=== PATIENT | female | born 1995 | race Caucasian/White ===

== ENCOUNTER 2016-11-04 19:27 | Emergency (ER) | payer OTHER ==
[2016-11-04 19:47] VITALS: BP 118/64; PULSE 83; TEMP 98.4; BMI 28.3
--- NOTE | 2016-11-04 21:01 | PDOC ---
History of Present Illness <Yecenia Izaguirre - Last Filed: 11/05/16 00:06> - General History Source: Patient Exam Limitations: No Limitations - History of Present Illness Initial Comments: 11/04/16 21:18 The patient is a 21 year old female 7 weeks A2, with no significant past medical history, who presents to the emergency room with mild suprapubic cramping and vaginal spotting. She explains that she saw some blood on the toilet paper this evening and has been experiencing some mild cramping. She notes that she visited another ED on 10/27/16 for vomiting and nausea when she was told she had an intrauterine of 6 weeks 2 days. She also notes that she had a UTI, but could not take any of the antibiotics because she was vomiting everything she ingested. At this moment she is not experiencing any vomiting, but wanted to be checked out because of the spotting. Her LMP was 09/13/16. She seen OBGYN Dr. Liz? 3 weeks ago. Denies nausea, vomiting, fever, chills. Denies urinary symptoms. Allergies: none reported Social hx: Occasional tobacco use. Social alcohol use. <Karla Landa - Last Filed: 11/05/16 00:07> - General Chief Complaint: Nausea/Vomiting Stated Complaint: VAGINAL BLEEDING/7 WKS Time Seen by Provider: 11/04/16 20:19 Past History - Past Medical History Other medical history: Pt denies - Immunization History Immunization Up to Date: Yes - Psycho/Social/Smoking Cessation Hx Anxiety: No Suicidal Ideation: No Smoking Status: No Smoking History: Former smoker Have you smoked in the past 12 months: Yes Number of Cigarettes Smoked Daily: 2 If you are a former smoker, when did you quit?: 3 wks ago Information on smoking cessation initiated: No Hx Alcohol Use: No Drug/Substance Use Hx: No Substance Use Type: None <Yecenia Izaguirre - Last Filed: 11/05/16 00:06> <Karla Landa - Last Filed: 11/05/16 00:07> - Past Medical History Allergies/Adverse Reactions: Allergies Allergy/AdvReac Type Severity Reaction Status Date / Time No Known Allergies Allergy Verified 11/04/16 19:44 Home Medications: Ambulatory Orders No Home Medications 0 dose .ROUTE UTDICT 07/07/13 Review of Systems - Review of Systems Able to Perform ROS?: Yes Comments:: 11/04/16 21:18 CONSTITUTIONAL: Absent: fever, no chills, no fatigue EYES: Absent: visual changes ENT: Absent: ear pain, no sore throat CARDIOVASCULAR: Absent: chest pain, no palpitations RESPIRATORY: Absent: cough, no SOB GI: Absent: no nausea, no vomiting, no constipation, no diarrhea GENITOURINARY: Present: +vaginal bleeding, +suprapubic cramping. Absent: dysuria, no frequency, no hematuria MUSCULOSKELETAL: Absent: back pain, no arthralgia, no myalgia SKIN: Absent: rash NEURO: Absent: headache <Karla Landa - Last Filed: 11/05/16 00:07> *Physical Exam - Vital Signs Last Vital Signs Temp Pulse Resp BP Pulse Ox 98.4 F 83 20 118/64 99 11/04/16 19:44 11/04/16 19:44 11/04/16 19:44 11/04/16 19:44 11/04/16 19:44 <Yecenia Izaguirre - Last Filed: 11/05/16 00:06> - Vital Signs Last Vital Signs Temp Pulse Resp BP Pulse Ox 98.4 F 83 20 118/64 99 11/04/16 19:44 11/04/16 19:44 11/04/16 19:44 11/04/16 19:44 11/04/16 19:44 - Physical Exam Comments: 11/05/16 00:06 GENERAL: Well-appearing, well-nourished. No apparent distress. HEENT: Normocephalic, atraumatic. PERRL, EOM intact. CARDIOVASCULAR: Normal S1, S2. Regular rate and rhythm. PULMONARY: Clear to auscultation bilaterally. ABDOMEN: +mild suprapubic tenderness. Soft, non-distended. PELVIC: +brown discharge, os is closed. No adnexal tenderness EXTREMITIES: Normal ROM in all four extremities. No gross deformities. SKIN: Warm, dry. No rash NEUROLOGICAL: No focal neurological deficits. <Karla Landa - Last Filed: 11/05/16 00:07> ED Treatment Course - LABORATORY CBC & Chemistry Diagram: 11/04/16 21:10 11/04/16 21:10 <Yecenia Izaguirre - Last Filed: 11/05/16 00:06> - LABORATORY CBC & Chemistry Diagram: 11/04/16 21:10 11/04/16 21:10 - RADIOLOGY Radiograph Interpretation: 11/05/16 00:07 EXAM#: TYPE/EXAM: RESULT: [id number] US/ <14WKS US Obstetrical ultrasound Clinical information: pelvic cramping, vaginal bleed The exam demonstrates a single viable intrauterine gestation with a crown rump length of 1 cm corresponding to an approximate gestational age of 7 weeks 0 days. Embryonic cardiac rate 157 BPM. No subchorionic implantation bleed is noted. No definite uterine pathology is identified. There is no free intraperitoneal fluid. The right ovary appears unremarkable demonstrating several subcentimeter follicles. There is no Doppler evidence of right ovarian torsion, sensitivity 70%. The left ovary could not be definitely visualized. IMPRESSION: Single viable intrauterine gestation at approximately 7 weeks 0 days. The right ovary appears unremarkable. The left ovary could not be definitely identified. Reported By: Jose Daniel Rees MD 11/04/16 [id number] <Karla Landa - Last Filed: 11/05/16 00:07> Medical Decision Making - Medical Decision Making 11/04/16 22:58 21-year-old female states that she's had vaginal bleeding and is approximately 7 weeks and 3 days -Is followed by Dr. Stark and saw her last Friday and had an US that showed single live IUP Past medical history significant for 4 para 1, 2 Social history lives with her 5-year-old son, occasionally drinks alcohol and occasionally will smoke cigarettes pelvic exam reveals some brown discharge, os is closed, no adnexal tenderness <Yecenia Izaguirre - Last Filed: 11/05/16 00:06> *DC/Admit/Observation/Transfer <Yecenia Izaguirre - Last Filed: 11/05/16 00:06> - Attestations Scribe Attestion: 11/04/16 21:19 Documentation prepared by DESIREE Guillen, acting as medical assisting program director for Yecenia Izaguirre MD. <Karla Landa - Last Filed: 11/05/16 00:07> Diagnosis at time of Disposition: STABLE, Threatened - Discharge Dispostion Disposition: HOME Condition at time of disposition: Stable - Patient Instructions Printed Discharge Instructions: DI for Threatened Additional Instructions: please keep your supervisor cellars appointments
[2016-11-04 21:31] LABS: PH,URINE 6.5 (5.0-8.0); URINE APPEARANCE SL CLOUDY; URINE BILIRUBIN NEGATIVE (NEGATIVE); URINE BLOOD 3+ (NEGATIVE); URINE COLOR LT. YELLOW; URINE GLUCOSE (UA) NEGATIVE (NEGATIVE); URINE KETONE TRACE (NEGATIVE); URINE NITRITE NEGATIVE (NEGATIVE); URINE PROTEIN TRACE (NEGATIVE); URINE UROBILINOGEN 0.2 mg/dL (0.2-1.0)
[2016-11-04 21:34] LABS: BASOPHIL 0.4 % (0-2.0); EOSINOPHIL 1.6 % (0-4.5); MCH 31.4 pg (25.7-33.7); MCHC 34.6 g/dl (32.0-36.0); MEAN CELL VOLUME 90.9 fl (80-96); MEAN PLT VOLUME 10.1 fl (7.5-11.1); NEUTROPHILS 66.2 % (42.8-82.8); PLATELET COUNT 238 K/MM3 (134-434); RDW 13.1 % (11.6-15.6); WHITE BLOOD COUNT 11.1 K/mm3 (4.0-10.0)
[2016-11-04 22:09] LABS: URINE BACTERIA RARE /hpf (NONE SEEN); URINE MUCUS FEW; URINE RBC 8 /hpf (0-3); URINE WBC 9 /hpf (3-5)
[2016-11-04 22:10] LABS: ALBUMIN 3.7 g/dl (3.4-5.0); ANION GAP 9 (8-16); CALCIUM 9.6 mg/dL (8.5-10.1); CO2 27 mmol/L (21-32); CREATININE 0.6 mg/dL (0.55-1.02); GLUCOSE,RANDOM 88 mg/dL (74-106); SGOT/AST 25 U/L (15-37)
[2016-11-04 22:12] LABS: ALK PHOS 72 U/L (45-117); BILIRUBIN,TOTAL 0.2 mg/dL (0.2-1.0); SGPT/ALT 33 U/L (12-78); TOT PROT 7.3 g/dl (6.4-8.2)
== END 2016-11-04 23:51 | disposition home or self-care (01) ==
LOC: JER 19:27
DX: O20.0 Threatened abortion (principal); Z3A.01 Less than 8 weeks gestation of pregnancy
CPT/HCPCS: 36415; 76801-TC; 80053; 81003; 81015; 84702; 85025; 86850; 86900; 86901; 99283-25

== ENCOUNTER 2020-04-24 12:23 | Emergency (ER) | payer OTHER ==
[2020-04-24 13:32] VITALS: BP 101/60; PULSE 71; TEMP 98.2; BMI 40.4
[2020-04-24] MEDS ORDERED: KETOROLAC TROMETHAMINE 30 MG/1 ML VIAL IM ONE (14:22)
[2020-04-24] MEDS ORDERED: KETOROLAC TROMETHAMINE 30 MG/1 ML VIAL ONE (14:32)
[2020-04-24 15:16] LABS: BASO % 0.6 % (0-2.0); EOS % 1.3 % (0-4.5); HEMATOCRIT 41.4 % (32.4-45.2); HEMOGLOBIN 14.1 GM/dL (10.7-15.3); LYMPH % 18.1 % (8-40); MCH 30.6 pg (25.7-33.7); MEAN CELL VOLUME 89.8 fl (80-96); MEAN PLT VOLUME 9.7 fl (7.5-11.1); MONO % 8.1 % (3.8-10.2); NEUT % 71.9 % (42.8-82.8); PLATELET COUNT 328 K/MM3 (134-434); RBC 4.61 M/mm3 (3.60-5.2); RDW 14.2 % (11.6-15.6); WHITE BLOOD COUNT 10.7 K/mm3 (4.0-10.0)
[2020-04-24 15:22] LABS: HCG,QUALITATIVE URINE Negative
[2020-04-24 15:26] LABS: EPI CELLS >36 /uL (0-25.1); HYALINE CASTS 2 /uL (0-3.1); PH,URINE 7.5 (5.0-8.0); URINE APPEARANCE CLOUDY; URINE BACTERIA >9,000 /uL (0-1359); URINE BILIRUBIN NEGATIVE (NEGATIVE); URINE COLOR YELLOW; URINE GLUCOSE (UA) NEGATIVE (NEGATIVE); URINE KETONE NEGATIVE (NEGATIVE); URINE LEUK ESTERASE NEGATIVE (NEGATIVE); URINE NITRITE POSITIVE (NEGATIVE); URINE PROTEIN NEGATIVE (NEGATIVE); URINE RBC 67 /uL (0-23.9); URINE UROBILINOGEN 0.2 mg/dL (0.2-1.0); URINE WBC 13 /uL (0-25.8)
[2020-04-24 15:48] LABS: POTASSIUM 4.1 mmol/L (3.5-5.1)
[2020-04-24 15:52] LABS: BLOOD UREA NITROGEN 13.2 mg/dL (7-18); CALCIUM 9.9 mg/dL (8.5-10.1)
[2020-04-24 15:55] LABS: CREATININE 0.7 mg/dL (0.55-1.3)
[2020-04-24 15:56] LABS: BILIRUBIN,TOTAL 0.4 mg/dL (0.2-1)
[2020-04-24 15:57] LABS: TOT PROT 8.1 g/dl (6.4-8.2)
== END 2020-04-24 17:23 | disposition home or self-care (01) ==
LOC: JER 12:23
PROC: 3E0233Z Introduction of Anti-inflammatory into Muscle, Percutaneous Approach (ICD-10-PCS; principal; 2020-04-24)
DX: R10.9 Unspecified abdominal pain (principal); N30.00 Acute cystitis without hematuria
CPT/HCPCS: 36415; 74176-TC; 80053; 81003; 83690; 84703; 85025; 87086; 87186; 99284-25

== ENCOUNTER 2022-10-30 11:03 | Emergency (ER) | payer OTHER ==
[2022-10-30 11:15] VITALS: BMI 28.3
[2022-10-30] MEDS ORDERED: MECLIZINE HCL 25 MG TABLET (FP) PO ONE (13:15)
[2022-10-30] MEDS ORDERED: ONDANSETRON 4 MG TABLET PO ONE ×2 (13:15→13:26)
[2022-10-30] MEDS ORDERED: ACETAMINOPHEN 500 MG TABLET (FP) PO ONE (13:15)
[2022-10-30] MEDS ORDERED: ACETAMINOPHEN 500 MG TABLET (FP) ONE (13:26)
[2022-10-30] MEDS ORDERED: MECLIZINE HCL 25 MG TABLET (FP) ONE (13:26)
[2022-10-30] MEDS ORDERED: NITROFURANTOIN MACROCRYSTAL 50 MG CAPSULE (FP) ONE (13:27)
[2022-10-30] MEDS ORDERED: NITROFURANTOIN MACROCRYSTAL 50 MG CAPSULE (FP) PO SCH (13:30)
[2022-10-30] MEDS ORDERED: SODIUM CHLORIDE 0.9% 500 ML INFUS.BAG IV ONE (14:31)
[2022-10-30 15:37] LABS: BASO % 1.2 % (0-2.0); EOS % 0.6 % (0-4.5); HEMATOCRIT 35.3 % (32.4-45.2); HEMOGLOBIN 11.4 GM/dL (10.7-15.3); LYMPH % 24.3 % (8-40); MCH 27.6 pg (25.7-33.7); MCHC 32.2 g/dl (32.0-36.0); MEAN CELL VOLUME 85.7 fl (80-96); MEAN PLT VOLUME 8.7 fl (7.5-11.1); NEUT % 63.9 % (42.8-82.8); PLATELET COUNT 409 10^3/uL (134-434); RBC 4.12 M/mm3 (3.60-5.2); RDW 14.6 % (11.6-15.6); WHITE BLOOD COUNT 5.7 K/mm3 (4.0-10.0)
[2022-10-30 16:05] LABS: ALBUMIN 3.8 g/dl (3.4-5.0)
[2022-10-30 16:06] LABS: BLOOD UREA NITROGEN 8.8 mg/dL (7-18)
[2022-10-30 16:09] LABS: CREATININE 0.6 mg/dL (0.55-1.3)
[2022-10-30 16:10] LABS: BILIRUBIN,TOTAL 0.8 mg/dL (0.2-1); TOT PROT 7.4 g/dl (6.4-8.2)
[2022-10-30 16:52] VITALS: BP 120/69; PULSE 91; RESP 16; TEMP 98.7
== END 2022-10-30 16:52 | disposition home or self-care (01) ==
LOC: JER 11:03
DX: R42 Dizziness and giddiness (principal); R11.0 Nausea
CPT/HCPCS: 36415; 80053; 84443; 85025; 93005; 93010; 99284-25